=== PATIENT | male | born 1975 | race Hispanic/Latino ===

== ENCOUNTER 2020-01-08 08:32 | Observation (INO) | payer BC ==
[~2020-01-08] VITALS: Ht 185.4 cm; Wt 144.1 kg
[2020-01-08 11:35] VITALS: BP 156/94
[2020-01-08 11:36] LABS: BASOPHILS % (AUTO) 0.4 % (0.0-5.0); EOSINOPHILS % (AUTO) 0.1 % (0.0-8.0); LYMPHOCYTES % (AUTO) 11.2 % (21.0-51.0); MEAN CORPUSCULAR HEMOGLOBIN 31.9 pg (27.0-33.0); MEAN CORPUSCULAR HGB CONC 34.7 g/dL (32.0-36.0); MEAN CORPUSCULAR VOLUME 91.9 fL (79-99); NEUTROPHILS % (AUTO) 81.8 % (40.0-77.0); PLATELET COUNT (AUTO) 477 K/uL (130-400); RED BLOOD CELL COUNT(AUTO) 5.33 MIL/uL (4.50-6.20); RED CELL DISTRIBUTION WIDTH 11.9 % (11.0-15.5); WHITE BLOOD COUNT (AUTO) 8.3 K/uL (4.8-10.8)
[2020-01-08 11:49] LABS: ALBUMIN 3.1 g/dL (3.5-5.0); BILIRUBIN,TOTAL 0.4 mg/dL (0.2-1.0); CREATININE 0.8 mg/dL (0.5-1.5); POTASSIUM 4.2 mmol/L (3.5-5.1); TOTAL PROTEIN, SERUM 7.3 g/dL (6.0-8.3)
[2020-01-08] MEDS ORDERED: DEXAMETHASONE SOD PHOSPHATE 10MG/ML 1ML VIAL IV PRN (13:45)
[2020-01-08] MEDS ORDERED: DiphenhydrAMINE HCL 50 MG/ML VIAL IVP PRN (14:00)
[2020-01-08] MEDS: METHYLPREDNISOLONE SOD SUCC 125MG/2ML VIAL IVP SCH ×2 (14:55→22:19)
[2020-01-08] MEDS: CEFTRIAXONE SODIUM 1 GM IVP SCH (14:55)
[2020-01-08] MEDS: SODIUM CHLORIDE 0.9% 1000ML 1,000 ML IV SCH ×2 (14:56→23:47)
[2020-01-08 16:00] VITALS: BP 163/90
[2020-01-08 19:30] VITALS: BP 143/95
[2020-01-08] MEDS: IPRATROPIUM/ALBUTEROL SULFATE 3 ML SOLUTION IH SCH (21:08)
[2020-01-09] VITALS: BP 139/89
[2020-01-09] MEDS: IPRATROPIUM/ALBUTEROL SULFATE 3 ML SOLUTION IH SCH ×4 (02:51→14:00)
[2020-01-09] MEDS: METHYLPREDNISOLONE SOD SUCC 125MG/2ML VIAL IVP SCH ×2 (03:19→11:37)
[2020-01-09 04:00] VITALS: BP 126/81
[2020-01-09 05:20] LABS: ALBUMIN 3.1 g/dL (3.5-5.0); BILIRUBIN,TOTAL 0.4 mg/dL (0.2-1.0); CREATININE 0.8 mg/dL (0.5-1.5); POTASSIUM 4.1 mmol/L (3.5-5.1); TOTAL PROTEIN, SERUM 7.1 g/dL (6.0-8.3)
[2020-01-09 06:46] LABS: HEMATOCRIT 46.1 % (42-54); MEAN CORPUSCULAR HEMOGLOBIN 32.2 pg (27.0-33.0); MEAN CORPUSCULAR HGB CONC 35.6 g/dL (32.0-36.0); MEAN CORPUSCULAR VOLUME 90.4 fL (79-99); RED BLOOD CELL COUNT(AUTO) 5.1 MIL/uL (4.50-6.20); RED CELL DISTRIBUTION WIDTH 11.7 % (11.0-15.5); WHITE BLOOD COUNT (AUTO) 10.7 K/uL (4.8-10.8)
--- NOTE | 2020-01-09 08:00 | NUR ---
PT AAO X 3 REVIEW PLAN OF CARE, DENIES ANY DISCOMFORT. CALL [facility]IGHT IN [facility].
[2020-01-09 08:31] VITALS: BP 135/87
[2020-01-09] MEDS ORDERED: AZITHROMYCIN 500MG+NS 250ML 250 ML IV SCH (09:00)
[2020-01-09] MEDS: SODIUM CHLORIDE 0.9% 1000ML 1,000 ML IV SCH (10:00)
--- NOTE | 2020-01-09 11:50 | NUR ---
DR. FAJARDO HERE, AND UPDATE OF LAST PLTS , OF 339. WITH DISCHARGE ORDERS . AND TO SETUP APPT. WITH HIM, REVIEW UPDATE OF OTHER LABSRESULTS, NO CHANGES CONT WITH CARE UNTIL DISCHARGE
[2020-01-09 12:08] VITALS: BP 130/97
[2020-01-09] MEDS: CEFTRIAXONE SODIUM 1 GM IVP SCH (14:45)
--- NOTE | 2020-01-09 15:06 | NUR ---
DISCHARGE SUMMARY REVIEW WITH PT. AND FOLLOW UP WITH DR. FAJARDO . APPT . AND SETUP IV TO HIS LFA ,DC WITH NO HEMATOMA NOTED A DRSG APPLICATION ON .
== END 2020-01-09 15:06 | disposition home or self-care (01) ==
LOC: 3DH 11:03
PROVIDERS: ADMIT Internal Medicine Hematology & Oncology; ATTEND Internal Medicine Hematology & Oncology
DX: J18.9 Pneumonia, unspecified organism (principal); D69.6 Thrombocytopenia, unspecified
CPT/HCPCS: 36415 ×2; 80053 ×2; 85025; 85027; 94640 ×3; 94664; 96365; 96375; 96376 ×2; G0378 ×16; J0456; J0696; J2930 ×4